=== PATIENT | male | born 2000 | race Caucasian/White ===

== ENCOUNTER 2024-02-26 02:29 | Emergency (ER) | payer OTHER ==
[~2024-02-26] VITALS: Ht 185.4 cm; Wt 121.5 kg
[2024-02-26 02:30] VITALS: TEMP 97
[2024-02-26] MEDS: METHOCARBAMOL 1,000 MG/10 ML VIAL IV ONE (04:26)
[2024-02-26] MEDS: KETOROLAC 30 MG/ML 1ML VIAL IV ONE (04:27)
[2024-02-26 05:11] VITALS: BP 108/57; O2SAT 98
[2024-02-26] MEDS ORDERED: NAPR-837 PO (06:01)
[2024-02-26] MEDS ORDERED: METH-1165 PO (06:01)
== END 2024-02-26 06:40 | disposition home or self-care (01) ==
LOC: M ED 02:29
DX: M54.30 Sciatica, unspecified side (principal); Z79.899 Other long term (current) drug therapy
CPT/HCPCS: 96374; 96375; 99284; J1885; J2800